=== PATIENT | male | born 1960 | race Caucasian/White ===

== ENCOUNTER 2025-04-15 11:06 | Emergency (ER) | payer OTHER, SELFPAY ==
[2025-04-15 11:08] VITALS: BP 186/81
--- NOTE | 2025-04-15 14:11 | ED.GENMED ---
History of Present Illness
General
Chief Complaint: Musculo-Skeletal Complaint
Time Seen by Provider: 04/15/25 12:14
History of Present Illness
History of Present Illness:
65-year-old male presents to the emergency department for evaluation of left buttock and left wrist pain after a mechanical fall. Fell directly on the left buttock. Denies head strike. Not on blood thinners.
Past History
Past History
ED Past Medical History: HTN, Hypercholesterolemia, NIDDM and Other (Sleep apnea)
ED Past Surgical History: Appendectomy and Other (Lymph node removal, orchiectomy)
Social History
Tobacco: Non-smoker
Alcohol: Occasional
Drug: None
Personal:
Living: with family
Employment: Employed
Review of Systems
Review of Systems
Allergies reviewed?: Yes
All Other Systems: ROS reviewed and negative except as documented in HPI and ROS
Phy Exam
Physical Exam
Physical Exam:
GEN: Well appearing, NAD, WDWN
HEENT: Oral mucosa moist, no scleral icterus
Cardiac: Regular rate
Lung: No respiratory distress, no tachypnea
MSK: No gross deformity or injuries. Palpable hematoma to the left gluteal region, no shortening or external rotation of lower extremity. Left hip range of motion is normal. Left wrist appears atraumatic however there is pain with range of
motion, no joint effusion or bony tenderness
Skin: Good color, no pallor or jaundice, no rashes
Neuro: AO x3, moves all extremities freely
Psych: Calm, cooperative
Course
Orders/Labs/Results
Orders:
Orders
04/15/25 12:47
CR Hip - LT w/wo Pel 2-3 Vw* Urgent
Comment:
Reason For Exam: fall L buttock pain
Include a pelvis x-ray?: Yes
CR Wrist - Left Min 3 Views Urgent
Comment:
Reason For Exam: fall
Vital Signs
Initial and Last Documented VS:
Initial Vital Signs
Temp Pulse Resp BP Pulse Ox
98.2 F 88 16 186/81 98
04/15/25 11:08 04/15/25 11:08 04/15/25 11:08 04/15/25 11:08 04/15/25 11:08
Last Documented Vital Signs
Temp Pulse Resp BP Pulse Ox
98.2 F 88 16 186/81 98
04/15/25 11:08 04/15/25 11:08 04/15/25 11:08 04/15/25 11:08 04/15/25 11:08
MDM/Problems Addressed
MDM/Problems Addressed:
X-rays are unremarkable, discussed supportive care
*Critical Care Note
Total Time (30-74mins, 75-104mins- exclusive of procedures): Not Applicable
ED Attending Note
-
Portions of this chart may have been created with voice recognition software.� Occasional wrong word or��sound alike� substitutions may have occurred due to the inherent limitations of voice recognition software.
Discharge Plan
Departure
Patient Disposition: Home (Routine Discharge)
Date of Disposition: 04/15/25
Time of Disposition: 14:11
Patient with high blood pressure during this ER visit?: No
Discharge Problem:
Hematoma of left buttock, Left wrist sprain
Instructions: Contusion (DC)
Prescriptions:
No Action
hydrocodone-acetaminophen [[place]] 1 EACH tablet
1 ea PO Q4HPRN PRN (Reason: pain) Qty: 12 0RF
Referrals:
Teto Melo DO [Family Provider, Family Practice]
Interventions
Interventions:
*Risk Screen - Suicide Last Done: 04/15/25 11:09
*General Assessment Last Done: 04/15/25 14:20
*Neglect/Abuse Screening Last Done: 04/15/25 11:09
*ED- Fall Risk Assessment Last Done: 04/15/25 14:20
*ED COVID-19 Vaccine History Last Done: 04/15/25 14:20
*Nursing Disposition Last Done: 04/15/25 14:21
ED-Musculoskeletal Assessment Last Done: 04/15/25 14:20
Discharge Date and Time
Discharge Date/Time: 04/15/25 14:21
Print Language: EGYPTIAN
== END 2025-04-15 14:21 | disposition home or self-care (01) ==
LOC: EMR 11:06
PROVIDERS: EMERGENCY PHYSICIAN Emergency Medicine; FAMILY PHYSICIAN Family Medicine
DX: S63.502A Unspecified sprain of left wrist, initial encounter (principal); S30.0XXA Contusion of lower back and pelvis, initial encounter; W19.XXXA Unspecified fall, initial encounter; I10 Essential (primary) hypertension; E78.00 Pure hypercholesterolemia, unspecified; E11.9 Type 2 diabetes mellitus without complications; G47.30 Sleep apnea, unspecified; Z90.49 Acquired absence of other specified parts of digestive tract; Z90.79 Acquired absence of other genital organ(s)
CPT/HCPCS: 99283; 73110; 73502

== ENCOUNTER → 2025-06-16 18:46 | Outpatient (REF) | payer OTHER, SELFPAY | LOC: RAD 18:46 | PROVIDERS: ATTENDING PHYSICIAN Student in an Organized Health Care Education/Training Program; FAMILY PHYSICIAN Family Medicine | DX: M79.641 Pain in right hand (principal); M79.642 Pain in left hand; R20.0 Anesthesia of skin; M25.40 Effusion, unspecified joint; M25.50 Pain in unspecified joint | CPT/HCPCS: 72040; 73120 ==